=== PATIENT | male | born 1950 | race Caucasian/White ===

== ENCOUNTER 2023-11-27 06:11 | Inpatient (IN) | payer MEDICARE, SELFPAY ==
--- NOTE | 2023-11-25 09:10 | CM ---
Patient is scheduled for cervical spine surgery on 11/27/23. Spoke with patient prior to surgery via telephone. Introduced role of the Orthopedic Navigator. Patient reports that he lives with his 23 year old daughter. He currently functions
independently. He has a cervical collar. He has never had VN services. PCP is Norman Self.
Discussed orthopedic program, post surgical plans and tentative plan for patient to return home when directed by surgeon. Patient is in agreement with tentative plan and will be going to his significant other's home (Her house is two story with two
steps to enter and a flight of steps to the second floor).
Plan: Orthopedic Navigator will remain available to assist with the care of patient and will reassess discharge needs after surgery.
[2023-11-26 12:16] VITALS: BMI 28.2
[2023-11-26 13:56] LABS: Hematocrit 44.2 % (39.0-52.0); Hemoglobin 14.6 g/dL (13.0-18.0); Mean Corpuscular Hgb 28.5 pg (27.0-31.0); Mean Corpuscular Volume 86.3 fL (80.0-94.0); Mean Platelet Volume 11.5 fL (7.4-10.4); Platelet Count 214 10^3/uL (130-400); Red Blood Cell Count 5.12 10^6/uL (4.70-6.10); Red Cell Dist. Width 13.5 % (11.5-14.5); White Blood Cell Count 7.9 10^3/uL (4.8-10.8)
[2023-11-26 14:12] LABS: ALT (SGPT) 32 U/L (0-50); AST (SGOT) 23 U/L (17-59); Albumin 4.2 g/dl (3.5-5.0); Alkaline Phosphatase 63 U/L (38-126); Blood Urea Nitrogen 20 mg/dl (9-20); Calcium 9.5 mg/dl (8.4-10.2); Carbon Dioxide 27 mmol/L (22-30); Chloride 102 mmol/L (98-107); Estimated Creatinine Clearance 66 ml/min; Glucose 126 mg/dl (70-99); Potassium 4.2 mmol/L (3.5-5.1); Sodium 137 mmol/L (135-145); Total Bilirubin 0.5 mg/dl (0.2-1.3); Total Protein 6.6 g/dl (6.3-8.2); eGFR > 60.00
[2023-11-26 14:56] VITALS: BMI 28.2
[2023-11-27] VITALS (17 sets, daily range): BP systolic 116–168; BP diastolic 76–109; BMI 28.2
[2023-11-27] MEDS: CELEBREX 200 MG PO (11:04)
[2023-11-27] MEDS: SKELAXIN 800 MG PO (11:04)
[2023-11-27] MEDS: LYRICA 150 MG PO (11:04)
[2023-11-27] MEDS: TYLENOL 1000 MG PO ×3 (11:04→23:05)
[2023-11-27] MEDS: NORMOSOL-R 1000 IV ×2 (11:05→16:05)
--- NOTE | 2023-11-27 11:34 | CM ---
Reviewed chart. Patient admitted for planned cervical spine surgery with Dr. Jones. Met with patient at bedside. Confirmed information previously obtained for assessment and discussed discharge plans. Patient states that he will now be going to his
own home (which is also two stories with four steps to enter and a flight to the second floor). He will have support from his daughter when he goes home. Reviewed that he will work with PT/OT after surgery and that discharge needs will depend on his
functional status. However, no needs currently identified.
Patient has a cervical collar but no other DME.
Patient will use [facility] pharmacy for discharge prescriptions.
[2023-11-27] MEDS: SUBLIMAZE 25 MCG IV ×3 (15:18→15:42)
[2023-11-27] MEDS: APRESOLINE 5 MG IV ×2 (16:13→16:48)
--- NOTE | 2023-11-27 17:15 | PTCARENOTE ---
Pt received from the PACU via bed. Transport was w/o incident. Pt is AAOx3, HRR, lungs are clear, resp. easy. Pt with dressing to anterior neck, Guaze w/ tegaderm. Dressing is C/D/I, no drainage noted. ASpen collar maintained. Vss, Pt is afebrile.
Pt instructed on plan of care, Pt verbalized understanding of instructions. Call regalado is within reach.
[2023-11-27] MEDS: ROXICODONE 5 MG PO ×2 (18:00→22:33)
[2023-11-27] MEDS: ANCEF 5 IV (20:13)
[2023-11-27] MEDS: COLACE 100 MG PO (20:14)
[2023-11-27] MEDS: SENOKOT 17.1999999999999993 MG PO (20:14)
[2023-11-27] MEDS: LYRICA 75 MG PO (22:32)
[2023-11-27] MEDS: VALIUM 2 MG PO (22:33)
[2023-11-28] MEDS: NORMOSOL-R 1000 IV (02:17)
[2023-11-28] MEDS: ANCEF 5 IV (04:20)
[2023-11-28 04:26] VITALS: BP 116/67
[2023-11-28 04:54] LABS: Hematocrit 40.7 % (39.0-52.0); Hemoglobin 13.5 g/dL (13.0-18.0)
[2023-11-28] MEDS: TYLENOL 1000 MG PO ×2 (05:02→11:00)
[2023-11-28 05:31] LABS: Blood Urea Nitrogen 19 mg/dl (9-20); Carbon Dioxide 21 mmol/L (22-30); Chloride 104 mmol/L (98-107); Estimated Creatinine Clearance 73 ml/min; Glucose 143 mg/dl (70-99); Potassium 4.4 mmol/L (3.5-5.1); Sodium 132 mmol/L (135-145); eGFR > 60.00
[2023-11-28 08:25] VITALS: BP 139/75
[2023-11-28 09:00] VITALS: BP 130/78; PULSE 85; O2SAT 95
[2023-11-28] MEDS: COLACE 100 MG PO (09:03)
[2023-11-28] MEDS: SENOKOT 17.1999999999999993 MG PO (09:03)
[2023-11-28] MEDS: MAGNESIUM OXIDE 500 MG PO (09:03)
--- NOTE | 2023-11-28 09:58 | PTOTSP ---
Pt is independent with all mobility, including stairs, without need for any assistive devices. Ok for dc to home from PT standpoint. Will sign off.
--- NOTE | 2023-11-28 10:11 | CM ---
Reviewed chart and held rounds with PT and OT. Patient admitted for planned cervical spine surgery with Dr. Jones. Met with patient at bedside. Confirmed information previously obtained for assessment and discussed discharge plans. Patient states
that he will now be going to his own home (which is also two stories with four steps to enter and a flight to the second floor). He will have support from his daughter when he goes home. He hopes to go to his partners home over weekend. Reviewed
that he will work with PT/OT after surgery and that discharge needs will depend on his functional status. However, no needs currently identified.
Patient has a cervical collar but no other DME.
Patient will use [facility] pharmacy for discharge prescriptions.
[2023-11-28] MEDS: LYRICA 75 MG PO (11:00)
--- NOTE | 2023-11-28 11:14 | W.PN.ORTHO ---
Today's Communication / Plan
-
d/c
Assessment
.
Distal Motor Intact: Yes
Dressing:
Clean, dry and intact.
Plan
.
Surgery / Date: C4-5-[address] Jones 11/27/23
Activity:
Out of bed.
PT/OT
Discharge Plan: Home
Subjective
.
.:
Muscle pain/spasm
Vital Signs and Labs
.
Vital Signs and Labs:
Lab Results
11/28/23 04:18
11/28/23 04:18
Temp Pulse Resp BP Pulse Ox
98.3 F 91 18 139/75 99
11/28/23 08:25 11/28/23 08:25 11/28/23 08:25 11/28/23 09:04 11/28/23 08:25
Physical Exam
-
HEENT: No pallor, cyanosis, or jaundice. Throat clear.
NECK: Supple. No JVD.
RESPIRATORY: Lungs clear to auscultation.
CVS: S1, S2 normal. RRR.� No murmur, rub or gallop.
ABDOMEN: Soft, non-tender. No distension. BS+/normal.
EXTREMITIES: strength equal, no calf pain with palpation
BILLIARD TABLE REPAIRER: AOx3. No focal deficits. mat roller grossly intact
[2023-11-28] MEDS: VALIUM 5 MG PO (11:22)
[2023-11-28] MEDS: DECADRON 6 MG IV (11:22)
--- NOTE | 2023-11-28 11:29 | W.DS.TRANS ---
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
-
Discharge Instructions:
Sleep Apnea Risk Intermediate
Discharge Diagnosis/Procedures C4-5-[address] Jones 11/27/23
Diet As tolerated
Activity No strenuous activity
Driving Restrictions No driving
Instructions:
Stand-Alone Forms: [facility] Cervical D/C Inst.
Changes to Home Medications: Yes
Discharge Medications:
DC Medications w/original date entered in [facility]
Vitamin D3 1 cap PO DAILY 11/25/23
ketoconazole 2 % shampoo 1 applic topical .EVERY OTHER DAY 11/25/23
magnesium 200 mg tablet 400 mg PO DAILY 11/25/23
omega-3 fatty acids-vitamin E 1,000 mg capsule 1 cap PO DAILY 11/25/23
turmeric 1,000 mg PO DAILY 11/25/23
zinc 50 mg tablet 50 mg PO DAILY 11/25/23
clonazepam 2 mg tablet (Klonopin) 2 mg PO HS PRN sleep 11/27/23
Saccharomyces boulardii 250 mg capsule (Florastor) 250 mg PO BID #1 cap 11/28/23
acetaminophen 325 mg capsule (Tylenol) 650 mg (2 x 325 mg) PO QID #2 caps 11/28/23
cephalexin 500 mg capsule 500 mg PO QID infection prevention #20 caps 11/28/23
diazepam 5 mg tablet (Valium) 5 mg PO BID PRN muscle spasm #10 tabs 11/28/23
docusate sodium 100 mg capsule (Colace) 100 mg PO BID stool softner #1 cap 11/28/23
gabapentin 300 mg capsule 300 mg PO HS sleep/pain #10 caps 11/28/23
lisinopril 10 mg tablet 10 mg PO DAILY #1 tab 11/28/23
magnesium hydroxide 400 mg/5 mL oral suspension (Milk of Magnesia) 30 ml PO HS PRN Constipation #1 mL 11/28/23
oxycodone 5 mg tablet 5 - 10 mg (1 - 2 x 5 mg) PO Q6H PRN 1 tab moderate pain, 2 severe #30 tabs 11/28/23
prednisone 10 mg tablet 40 mg (4 x 10 mg) PO TAPER inflammation #20 tabs 11/28/23
sennosides 8.6 mg tablet (Senokot) 17.2 mg (2 x 8.6 mg) PO BID laxative #2 tabs 11/28/23
Home Medication Changes
cephalexin 500 mg capsule 500 mg PO QID infection prevention #20 caps 11/28/23
diazepam 5 mg tablet (Valium) 5 mg PO BID PRN muscle spasm #10 tabs 11/28/23
gabapentin 300 mg capsule 300 mg PO HS sleep/pain #10 caps 11/28/23
oxycodone 5 mg tablet 5 - 10 mg (1 - 2 x 5 mg) PO Q6H PRN 1 tab moderate pain, 2 severe #30 tabs 11/28/23
prednisone 10 mg tablet 40 mg (4 x 10 mg) PO TAPER inflammation #20 tabs 11/28/23
Pending Results: No
[2023-11-28 11:40] VITALS: BP 124/65
--- NOTE | 2023-11-28 14:30 | PN.CDI ---
CDI
- -
CDI:
Physician Documentation Request
Admit Date: 11/27/23 06:11
Dear Doctor Jones,
Please review the following and provide your response in the progress notes.
Clinical Indicators:
Laboratory Tests
11/26/23 11/28/23
11:58 04:18
Sodium 137 132 L
Based on the above, please clarify in the progress notes, the appropriate diagnosis, if significant, that supports the above abnormalities and additional evaluation, monitoring and/or treatment rendered:
Hyponatremia
Abnormal lab value, clinically insignificant
Other
Use of terms such as suspected, likely, concern for, or probable (associated with a specific diagnosis that is being evaluated, monitored, or treated as if it exists) are acceptable and can be coded in the inpatient setting, when documented at the
time of discharge.
Thank you,
Dayanna Modi RN BSN CCDS
CDI Specialist
please contact via tiger text
Please use your independent medical judgment in providing your response.
--- NOTE | 2023-11-28 15:41 | W.PN.UPDATE ---
Update Note
Progress Note Update
Sodium 132
Likely not clinically significant
== END 2023-11-28 13:04 | disposition home or self-care (01) | DRG 472 ==
LOC: 2 SOUTH 06:11
PROVIDERS: Physician Assistant Medical; ADMITTING PHYSICIAN Orthopaedic Surgery Orthopaedic Surgery of the Spine; FAMILY PHYSICIAN Family Medicine
PROC: 0RG20A0 Fusion of 2 or more Cervical Vertebral Joints with Interbody Fusion Device, Anterior Approach, Anterior Column, Open Approach (ICD-10-PCS; 2023-11-27)
PROC: 0RT30ZZ Resection of Cervical Vertebral Disc, Open Approach (ICD-10-PCS; 2023-11-27)
DX: M48.02 Spinal stenosis, cervical region (principal); G99.2 Myelopathy in diseases classified elsewhere
CPT/HCPCS: 36415; 72020; 80048; 80053; 85014; 85018; 85027; 87070; 93005; 97161; 97165; 97530; C1713